=== PATIENT | male | born 1960 | race African-American/Black ===

== ENCOUNTER 2019-12-20 07:02 | Inpatient (IN) | payer OTHER, MEDICAID ==
[~2019-12-20] VITALS: Ht 167.6 cm; Wt 67.1 kg
[2019-12-20 08:57] LABS: BASOPHILS % 0.8 % (0.0-2.0); EOSINOPHILS % 0.1 % (0.0-5.0); HEMATOCRIT. 43.1 % (42.0-52.0); HEMOGLOBIN. 15.4 g/dL (14.0-18.0); LYMPHOCYTES % 10.7 % (20.0-50.0); MEAN CORPUSCULAR HEMOGLOBIN 30.4 pg (28.0-32.0); MEAN CORPUSCULAR VOLUME 85.4 fL (80.0-94.0); MEAN PLATELET VOLUME 10.2 fl (7.4-10.4); MONOCYTES % 7.5 % (2.0-8.0); NEUTROPHILS % 80.9 % (40.0-76.0); PLATELET 158 x1000/uL (130-400); RED BLOOD CELL COUNT 5.05 mill/uL (4.7-6.1); RED CELL DISTRIBUTION WIDTH 14.1 % (11.6-14.6)
[2019-12-20 09:08] LABS: CHLORIDE 95 mEq/L (98-107)
[2019-12-20 09:14] LABS: ETHANOL BLOOD < 10 mg/dL
[2019-12-20] MEDS ORDERED: LORAZEPAM 2MG/ML CPJ IM ONE (09:30)
[2019-12-20 10:37] LABS: CLARITY URINE CLEAR (CLEAR); COLOR URINE YELLOW (YELLOW); KETONES URINE 4+ (NEGATIVE); LEUKOCYTE ESTERASE URINE NEGATIVE (NEGATIVE); NITRITE URINE NEGATIVE (NEGATIVE); OCCULT BLOOD URINE NEGATIVE (NEGATIVE); PROTEIN URINE NEGATIVE (NEGATIVE); SPECIFIC GRAVITY URINE 1.033 (1.005-1.030); UROBILINOGEN URINE 0.2 E.U./dL (0.2-1.0)
[2019-12-20 11:13] LABS: *AMPHETAMINES SCREEN URINE NEGATIVE (NEGATIVE); *BARBITURATES SCREEN URINE NEGATIVE (NEGATIVE); *BENZODIAZEPINES SCREEN URINE NEGATIVE (NEGATIVE); *COCAINE SCREEN URINE NEGATIVE (NEGATIVE)
[2019-12-20 11:14] LABS: OPIATES URINE SCREEN NEGATIVE (NEGATIVE)
[2019-12-20 11:15] LABS: CANNABINOID URINE SCREEN NEGATIVE (NEGATIVE)
[2019-12-20 11:47] LABS: METHADONE URINE SCREEN NEGATIVE (NEGATIVE)
[2019-12-20 11:59] LABS: PHENCYCLIDINE URINE SCREEN NEGATIVE (NEGATIVE)
[2019-12-20] MEDS ORDERED: SODIUM CHLORIDE 0.9% 1,000 ML IV ONE (14:03)
[2019-12-20 14:58] LABS: BG BASE EXCESS -8.3 mmol/L (-2.0-2.0); BG CARBOXYHEMOGLOBIN 0.5 % (0.5-1.5); BG DEOXYHEMOGLOBIN 4.3 % (0.0-5.0); BG FRACTION INSPIRED OXYGEN 21; BG HCO3 ACT 16.9 mmol/L (22.0-26.0); BG METHEMOGLOBIN 0.3 % (0.0-1.5); BG OXYGEN SATURATION 95.7 % (92.0-98.5); BG OXYHEMOGLOBIN 94.9 % (94.0-97.0); BG PCO2 34.2 mmHg (35.0-45.0); BG PH 7.311 (7.350-7.450); BG PO2 86.7 mmHg (75.0-100.0); BG SAMPLE SITE RIGHT RADIAL; BG TOTAL HEMOGLOBIN 14.4 g/dL (12.0-18.0); BG VENT MODE ROOM AIR
[2019-12-20] MEDS ORDERED: ONDANSETRON HCL 4MG/2ML INJ IV PRN (17:45)
[2019-12-20] MEDS ORDERED: CLONIDINE 0.1MG TABLET PO PRN (17:45)
[2019-12-20] MEDS ORDERED: ACETAMINOPHEN 650MG SUPP PR PRN (17:45)
[2019-12-20] MEDS ORDERED: DOCUSATE SODIUM 100MG CAPSULE PO PRN (17:45)
[2019-12-20] MEDS ORDERED: LORAZEPAM 0.5MG TABLET PO PRN (17:45)
[2019-12-20] MEDS ORDERED: ACETAMINOPHEN 325MG TABLET PO PRN (17:45)
[2019-12-20] MEDS ORDERED: GUAIFENESIN 200MG/10ML SUGAR FREE UDC PO PRN (17:45)
[2019-12-20] MEDS ORDERED: MAGNESIUM/ALUMINUM HYDROXIDE/SIMETHICONE 30ML UDC PO PRN (17:45)
[2019-12-20] MEDS ORDERED: DIPHENHYDRAMINE 50MG/ML VIAL IV PRN (17:45)
[2019-12-20] MEDS ORDERED: HYDROCODONE/ACETAMINOPHEN 5/325MG TABLET PO PRN (17:45)
[2019-12-20] MEDS ORDERED: METFORMIN HCL 500MG TABLET PO ONE (17:45)
[2019-12-20] MEDS ORDERED: NA PHOS,M-B/NA PHOS,DI-BA ENEMA 118ML PR PRN (17:45)
[2019-12-20 20:28] LABS: VITAMIN B12 SERUM 1648 pg/mL (211-911)
[2019-12-20 23:20] VITALS: BP 149/60
[2019-12-20] MEDS ORDERED: IPRATROPIUM/ALBUTEROL 0.5-3(2.5)MG/3ML NEB NEB PRN (23:48)
[2019-12-21] VITALS: BP 149/56
[2019-12-21] MEDS: SODIUM CHLORIDE 0.9% 1,000 ML IV SCH ×2 (00:52→13:29)
[2019-12-21 04:00] VITALS: BP 143/56
[2019-12-21] MEDS ORDERED: DEXTROSE 50% WATER 50ML SYRINGE IV PRN (06:45)
[2019-12-21] MEDS: BLOOD SUGAR DIAGNOSTIC STRIP TEST SCH ×3 (06:52→16:45)
[2019-12-21] MEDS: INSULIN LISPRO 100 UNITS/ML SUBCUT SCH ×3 (07:07→17:15)
[2019-12-21] MEDS ORDERED: METFORMIN HCL 500MG TABLET PO SCH (07:15)
[2019-12-21 08:00] VITALS: BP 159/62
[2019-12-21] MEDS ORDERED: NICOTINE 14MG PATCH TD SCH (09:00)
[2019-12-21] MEDS ORDERED: ENOXAPARIN 40MG/0.4ML SYR SUBCUT SCH (09:00)
[2019-12-21] MEDS ORDERED: DILTIAZEM HCL 30MG TABLET PO SCH (09:00)
[2019-12-21 09:03] LABS: BASOPHILS % 0.6 % (0.0-2.0); EOSINOPHILS % 0.3 % (0.0-5.0); HEMATOCRIT. 40.9 % (42.0-52.0); HEMOGLOBIN. 14.3 g/dL (14.0-18.0); LYMPHOCYTES % 16.7 % (20.0-50.0); MEAN CORPUSCULAR HEMOGLOBIN 30.1 pg (28.0-32.0); MEAN CORPUSCULAR VOLUME 85.7 fL (80.0-94.0); MEAN PLATELET VOLUME 9.6 fl (7.4-10.4); MONOCYTES % 12.4 % (2.0-8.0); PLATELET 181 x1000/uL (130-400); RED BLOOD CELL COUNT 4.77 mill/uL (4.7-6.1); RED CELL DISTRIBUTION WIDTH 14.1 % (11.6-14.6)
[2019-12-21 09:15] LABS: CHLORIDE 102 mEq/L (98-107)
[2019-12-21 09:26] LABS: LDL CHOLESTEROL 64 mg/dL (5-100)
[2019-12-21 09:28] LABS: HDL CHOLESTEROL 29 mg/dL (40-59); T4 FREE 1.03 ng/dL (0.76-1.46)
[2019-12-21 12:00] VITALS: BP 148/63
[2019-12-21 16:00] VITALS: BP 145/83
[2019-12-21 19:17] VITALS: BP 143/64
[2019-12-21] MEDS ORDERED: DIVALPROEX SODIUM 500MG DR TABLET PO SCH (21:00)
[2019-12-21] MEDS ORDERED: FAMOTIDINE 20MG TABLET PO SCH (21:00)
== END 2019-12-21 19:32 | disposition home or self-care (01) | DRG 71 ==
LOC: ER 07:34 → SUPCPDRO 13:51 → 5WST 13:51 → EDBEDREQ 13:58 → ENRESERV 21:42
PROVIDERS: ADMIT Internal Medicine; ATTEND Internal Medicine
DX: G93.49 Other encephalopathy (principal); E87.2 Acidosis; I10 Essential (primary) hypertension; F20.9 Schizophrenia, unspecified; E86.0 Dehydration; E78.5 Hyperlipidemia, unspecified; E11.65 Type 2 diabetes mellitus with hyperglycemia; D72.810 Lymphocytopenia; F17.210 Nicotine dependence, cigarettes, uncomplicated; J45.909 Unspecified asthma, uncomplicated; Z87.820 Personal history of traumatic brain injury; Z79.84 Long term (current) use of oral hypoglycemic drugs
CPT/HCPCS: 36415; 36600; 70551; 71045; 80053; 80061; 80165; 80305; 80320; 81003; 82140; 82375; 82607; 82805; 82962; 83036; 84145; 84439; 84443; 85025; 86592; 93005; 93970; 97162; 99285; J1650; J1815; J2060; G0480